=== PATIENT | female | born 1990 | race American Indian/Alaskan Native ===

== ENCOUNTER 2016-08-05 20:37 | Emergency (ER) | payer MEDICAID ==
[2016-08-05] MEDS ORDERED: TYLENOL ONE (20:50)
[2016-08-05] MEDS ORDERED: NACL 0.9% 500 ML 500 ML IV ONE (20:57)
[2016-08-05] MEDS ORDERED: TYLENOL PO ONE (20:59)
[2016-08-05 21:36] LABS: INR 0.92 (0.87-1.13)
[2016-08-05 21:37] LABS: Alanine Aminotransferase 10 units/L (7-56); Albumin 4.7 g/dL (3.9-5); Albumin/Globulin Ratio 1.2 %; Alkaline Phosphatase 95 units/L (35-129); Anion Gap 17 mmol/L; BUN/Creatinine Ratio 8.75; Blood Urea Nitrogen 7 mg/dL (7-17); Calcium 9.4 mg/dL (8.4-10.2); Carbon Dioxide 25 mmol/L (22-30); Chloride 93.7 mmol/L (98-107); Glucose 101 mg/dL (65-100); Lipase 10 units/L (13-60); Potassium 3.4 mmol/L (3.6-5.0); Sodium 132 mmol/L (137-145); Total Protein 8.6 g/dL (6.3-8.2)
[2016-08-05 21:57] LABS: Basophils % (Auto) 0.4 % (0.0-1.8); Eosinophils % (Auto) 0.2 % (0.0-4.3); Hematocrit 38.8 % (30.3-42.9); Hemoglobin 12.9 gm/dl (10.1-14.3); Mean Corpuscular HGB Conc 33 % (30-34); Mean Corpuscular Hemoglobin 31 pg (28-32); Mean Corpuscular Volume 94 fl (79-97); Platelet Count 312 K/mm3 (140-440); Red Blood Count 4.15 M/mm3 (3.65-5.03); Red Cell Distribution Width 12.9 % (13.2-15.2); White Blood Count 6.7 K/mm3 (4.5-11.0)
[2016-08-05] MEDS ORDERED: TORADOL IV ONE (22:32)
[2016-08-05] MEDS ORDERED: NACL 0.9% 1000 ML 1,000 ML IV ONE (22:33)
--- NOTE | 2016-08-05 22:38 | Emergency Department Report ---
HPI - General Chief Complaint: Abdominal Pain Time Seen by Provider: 08/05/16 22:17 - HPI HPI: This is a 26-year-old -[place] female who was dropped off by a friend to be seen with a complaint of a 2-3 day history of nausea with one episode of vomiting, mild abdominal discomfort, frontal headache, body aches and a fever. Patient did not check her temperature at home but has felt warm with some intermittent chills and sweats. She was found to have a MAXIMUM TEMPERATURE of 103 here. She denies any past medical history. She did not take anything for symptoms read presentation. She has a primary care doctor but has not seen them regarding her symptoms. No recent travel or sick contacts at home. She denies any chest pain, cough, vision change, diarrhea, dysuria, vaginal bleeding or discharge. She does admit to some mild constipation having not had a bowel movement in the past 3 days. ED Past Medical Hx - Past Medical History Previous Medical History?: No - Surgical History Past Surgical History?: No - Social History Smoking Status: Current Every Day Smoker Substance Use Type: Alcohol ED Review of Systems ROS: Stated complaint: VOMITING/LEE/BODY PAIN Other details as noted in HPI Constitutional: chills, fever Eyes: denies: eye pain, eye discharge, vision change ENT: denies: ear pain, throat pain Respiratory: denies: cough, shortness of breath, wheezing Cardiovascular: denies: chest pain, palpitations Gastrointestinal: abdominal pain, nausea, constipation. denies: diarrhea Genitourinary: denies: urgency, dysuria, discharge Musculoskeletal: myalgia. denies: joint swelling Skin: denies: rash, lesions Neurological: headache. denies: weakness, numbness, paresthesias Physical Exam - Physical Exam Vital Signs: Vital Signs 08/05/16 20:59 Temperature 103.0 F H Pulse Rate 121 H Respiratory 18 Rate Blood Pressure 133/97 [Right] O2 Sat by Pulse 100 Oximetry Physical Exam: GENERAL: The patient is well-developed well-nourished. HEENT: Normocephalic. Atraumatic. Extraocular motions are intact. Patient has moist mucous membranes. Pupils equal reactive to light bilaterally. Oropharynx clear without tonsillar hypertrophy, erythema or exudates. NECK: Supple. Trachea is midline. CHEST/LUNGS: Clear to auscultation. No cough heard during examination. There is no respiratory distress noted. HEART/CARDIOVASCULAR: Regular. There is no tachycardia. There is no gallop rub or murmur. ABDOMEN: Abdomen is soft, nontender. No reproducible tenderness to palpation of the abdomen. No guarding or rebound tenderness. Patient has normal bowel sounds. There is no abdominal distention. SKIN: Skin is hot but dry. NEURO: The patient is awake, alert, and oriented. The patient is cooperative. The patient has no focal neurologic deficits. The patient has normal speech. Cranial nerves II through XII grossly intact. MUSCULOSKELETAL: There is no tenderness or deformity. There is no limitation range of motion. There is no evidence of acute injury. ED Course Vital Signs 08/05/16 20:59 Temperature 103.0 F H Pulse Rate 121 H Respiratory 18 Rate Blood Pressure 133/97 [Right] O2 Sat by Pulse 100 Oximetry ED Medical Decision Making - Lab Data Result diagrams: 08/05/16 21:13 08/05/16 21:13 - EKG Data -: EKG Interpreted by Me EKG shows normal: sinus rhythm, axis, intervals, QRS complexes, ST-T waves Rate: normal - EKG Data When compared to previous EKG there are: previous EKG unavailable Interpretation: normal EKG - Radiology Data Radiology results: image reviewed interpreted by me: Abdominal x-ray shows nonspecific, nonspecific bowel gas. Chest x-ray did not show any acute process. Heart is normal shape and size. No effusions. No pneumothorax. No signs of pneumonia seen. - Medical Decision Making 26-year-old female presents the emergency department with some fever, chills, cough, abdominal discomfort and a slight headache. Patient did have a MAXIMUM TEMPERATURE of 103 Fahrenheit here. She was given some Tylenol and eventually Toradol and IV fluid resuscitation. Chest and abdominal x-rays did not show any acute process and no etiology of the fever or signs of infection. The patient's labs are unremarkable including no leukocytosis, electrolyte abnormalities, renal insufficiency, glucose abnormalities. Normal belly labs. Urinalysis does not show any urinary tract infection and the patient is not . Patient was negative for influenza. The patient was reevaluated multiple times over multiple hours and is feeling greatly improved and asking for discharge home. She appears most consistent with a viral syndrome. We discussed Tylenol and ibuprofen to be used intermittently. She will follow-up with her primary care and will return to the ER with any worsening of her symptoms or any acute distress. - Differential Diagnosis viral syndrome, influenza, pneumonia, colitis Critical Care Time: No Critical care attestation.: If time is entered above; I have spent that time in minutes in the direct care of this critically ill patient, excluding procedure time. ED Disposition Clinical Impression: Body aches, Viral syndrome, Nausea Fever Qualifiers: Fever type: unspecified Qualified Code(s): R50.9 - Fever, unspecified Abdominal pain Qualifiers: Abdominal location: generalized Qualified Code(s): R10.84 - Generalized abdominal pain Disposition: DISCHARGED TO HOME OR SELFCARE Is pt being admited?: No Condition: Stable Instructions: Fever in Adults (ED), Viral Syndrome (ED), Abdominal Pain (ED) Additional Instructions: Please follow-up with a primary care doctor in the next few days. Return to the emergency department with any worsening of your symptoms, intractable fever , intractable vomiting or any acute distress. You can use Tylenol every 4 hours and Motrin/ibuprofen every 6 hours, using weight-based dosing, as needed for fever control or discomfort. Referrals: PRIMARY CARE, [Primary Care Provider] - [facility] Time of Disposition: 00:42
--- NOTE | 2016-08-05 23:36 | XRay Report ---
FINAL REPORT PROCEDURE: XR ABD SERIES W CXR 1V TECHNIQUE: Abdominal series complete, including supine and upright AP views of the abdomen and frontal chest. HISTORY: abd pain COMPARISON: No prior studies are available for comparison. FINDINGS: Heart: Normal. Mediastinum/Vessels: Normal. Lungs/Pleural space: Normal. Bowel gas pattern: Nonobstructive. Masses or calcifications: None. Bony structures: No acute osseous abnormality. Other: No free intraperitoneal air. IMPRESSION: No acute abnormality.
[2016-08-06 00:17] LABS: Bilirubin,Urine NEG (Negative); Blood,Urine MOD (Negative); Ketones,Urine TR mg/dL (Negative); Leukocyte Esterase,Urine NEG (Negative); Mucus,Urine FEW /HPF; Nitrite,Urine NEG (Negative); Protein,Urine <15 mg/dL mg/dL (Negative); Urobilinogen,Urine < 2.0 mg/dL (<2.0); WBC,Urine < 1.0 /HPF (0.0-6.0)
[2016-08-06 00:30] VITALS: BP 113/76
== END 2016-08-06 00:56 | disposition home or self-care (01) ==
LOC: ED 20:37
DX: B34.9 Viral infection, unspecified (principal); R11.0 Nausea; R10.84 Generalized abdominal pain; F17.200 Nicotine dependence, unspecified, uncomplicated
CPT/HCPCS: 36415; 74022; 80053; 81001; 82140; 82805; 83690; 84703; 85025; 85610; 87040; 87086; 87400; 93005; 93010; 96361; 96374; 99284; J1885; J7030; J7040